=== PATIENT | female | born 1970 | race Caucasian/White ===

== ENCOUNTER 2020-10-15 10:19 | Emergency (ER) | payer BC ==
[2020-10-15] MEDS ORDERED: Sodium Chloride 0.9% 10 ML Syringe FLUSH PRN (11:23)
[2020-10-15] MEDS ORDERED: Sodium Chloride 0.9% 1,000 ML IV ONE (11:24)
[2020-10-15] MEDS ORDERED: Ondansetron 4 MG/2 ML SDV IVPUSH ONE (11:24)
[2020-10-15] MEDS ORDERED: HYDROmorphone 0.5 MG/0.5 ML Syringe IVPUSH ONE (11:24)
--- NOTE | 2020-10-15 11:31 | EDM.PDOC ---
ED HPI GENERAL MEDICAL PROBLEM - General Chief Complaint: RN FIRST ASSIST Problem Stated Complaint: ABDOMINAL PAIN POST SURGERY Time Seen by Provider: 10/15/20 11:03 Source of Information: Reports: Patient History Limitations: Reports: No Limitations, Other (ED vital signs reveal a temp of 98.9, pulse of 69, respiratory rate of 15, blood pressure 109/85, pulse ox 99% on room air) - History of Present Illness INITIAL COMMENTS - FREE TEXT/NARRATIVE: 50-year-old female presents the emergency department today with complaints of generalized abdominal pain. For the patient she states that she had a uterine ablation on September 29, 2020. She states that immediately after the procedure she had issues with nausea and vomiting and abdominal pain and this has since not resolved. She states she has had vaginal bleeding for the past 2 weeks. She states she is going through 1 pad every hour. She denies having any clots. She states that the bleeding is bright red blood. She states she has been nauseated since the procedure as well. She did attempt to take some Zofran yesterday and states this is not helped. She also states she has been fatigued and she does have some dizziness when she is up ambulating. She denies any urinary symptoms. She denies any issues with her bowels. States she has been having 2 bowel movements daily. Denies any recent fever or chills. She states she had the uterine ablation due to heavy vaginal bleeding during her periods. She states she had the procedure done at [facility] in [place] by Dr. Crandall. Lower Abdominal Pain Score (Numeric/FACES): 8 - Related Data Allergies Allergy/AdvReac Type Severity Reaction Status Date / Time No Known Allergies Allergy Verified 10/15/20 11:04 Home Meds: Home Meds . [No Known Home Meds] 10/15/20 [History] Past Medical History RN FIRST ASSIST History: Reports: Endometrial Ablation - Past Surgical History Female Surgical History: Reports: Section, Other (See Below) Other Female Surgeries/Procedures: uterine ablation Social & Family History - Tobacco Use Tobacco Use Status *Q: Never Tobacco User - Recreational Drug Use Recreational Drug Use: No ED ROS GENERAL - Review of Systems Review Of Systems: Comprehensive ROS is negative, except as noted in HPI. ED EXAM, RENAL/ - Physical Exam Exam: See Below Exam Limited By: No Limitations General Appearance: Alert, WD/WN, No Apparent Distress Ears: Normal External Exam, Hearing Grossly Normal Nose: Normal Inspection Throat/Mouth: Normal Inspection, Normal Lips, Normal Voice, No Airway Compromise Head: Atraumatic Neck: Normal Inspection, Supple Respiratory/Chest: No Respiratory Distress, Lungs Clear, Normal Breath Sounds, No Accessory Muscle Use, Chest Non-Tender Cardiovascular: Normal Peripheral Pulses, Regular Rate, Rhythm, No Edema, No Murmur GI/Abdominal: Normal Bowel Sounds, Soft, No Distention, Tender (Suprapubic) (Female) Exam: Normal External Exam, Vaginal Bleeding, Other (Blood noted at cervical os) Rectal (Female) Exam: Deferred Back Exam: Normal Inspection, Full Range of Motion Extremities: Normal Inspection, Normal Range of Motion, Non-Tender, No Pedal Edema, Normal Capillary Refill Neurological: Alert, Oriented, Normal Cognition Psychiatric: Normal Affect, Normal Mood Skin Exam: Warm, Dry, Intact, Normal Color, No Rash Lymphatic: No Adenopathy Course - Vital Signs Text/Narrative:: Patient with complaints of nausea, decreased appetite and generalized abdominal discomfort status post uterine ablation on September 29, 2020. Upon assessment, the patient has suprapubic tenderness with palpation however she does not have any tenderness in the upper abdomen. She states she has not taken any ibuprofen or Tylenol for the discomfort. She states she has had heavy vaginal bleeding since the procedure without clots. She states that the vaginal bleeding is bright red. She was in to see her provider 4 days ago for follow-up for surgery and he did not seem concerned with the vaginal bleeding at that time. Patient states that he prescribed her with Zofran for the nausea. I have ordered labs to include a CBC, CMP, magnesium, C-reactive protein, urine , urinalysis with micro and culture if indicated. I have also ordered a non-OB transvaginal ultrasound. She will receive normal saline 1 L bolus, Dilaudid and Zofran. Last Recorded V/S: Last Vital Signs Temp 98.9 F 10/15/20 10:30 Pulse 69 10/15/20 10:30 Resp 15 10/15/20 10:30 BP 109/85 10/15/20 10:30 Pulse Ox 99 10/15/20 10:30 - Orders/Labs/Meds Orders: Active Orders 24 hr Category Date Time Status CULTURE URINE [MREF] Stat Lab 10/15/20 11:35 Received Sodium Chloride 0.9% [Saline Flush] Med 10/15/20 11:23 Active 10 ml FLUSH ASDIRECTED PRN Saline Lock Insert [OM.PC] Stat Oth 10/15/20 11:23 Ordered Medication Orders Sodium Chloride (Sodium Chloride 0.9% 10 Ml Syringe) 10 ml FLUSH ASDIRECTED PRN PRN Reason: Keep Vein Open Last Admin: 10/15/20 12:12 Dose: 10 ml Documented by: TARA Labs: Laboratory Tests 10/15/20 10/15/20 10/15/20 Range/Units 11:31 11:31 11:35 WBC 8.72 (3.98-10.04) K/mm3 RBC 3.96 L (3.98-5.22) M/mm3 Hgb 11.6 (11.2-15.7) gm/dl Hct 35.4 (34.1-44.9) % MCV 89.4 (79.4-94.8) fl MCH 29.3 (25.6-32.2) pg MCHC 32.8 (32.2-35.5) g/dl RDW Std Deviation 40.8 (36.4-46.3) fL Plt Count 278 (182-369) K/mm3 MPV 9.9 (9.4-12.3) fl Neut % (Auto) 67.0 (34.0-71.1) % Lymph % (Auto) 26.0 (19.3-51.7) % Mchenry % (Auto) 5.3 (4.7-12.5) % Eos % (Auto) 1.3 (0.7-5.8) Baso % (Auto) 0.2 (0.1-1.2) % Neut # (Auto) 5.84 (1.56-6.13) K/mm3 Lymph # (Auto) 2.27 (1.18-3.74) K/mm3 Mchenry # (Auto) 0.46 H (0.24-0.36) K/mm3 Eos # (Auto) 0.11 (0.04-0.36) K/mm3 Baso # (Auto) 0.02 (0.01-0.08) K/mm3 Sodium 140 (136-145) mEq/L Potassium 3.9 (3.5-5.1) mEq/L Chloride 106 (98-107) mEq/L Carbon Dioxide 25 (21-32) mEq/L Anion Gap 12.9 (5-15) BUN 21 H (7-18) mg/dL Creatinine 0.7 (0.55-1.02) mg/dL Est Cr Clr Drug Dosing TNP Estimated GFR (MDRD) > 60 (>60) mL/min BUN/Creatinine Ratio 30.0 H (14-18) Glucose 91 (70-99) mg/dL Calcium 8.1 L (8.5-10.1) mg/dL Magnesium 2.0 (1.8-2.4) mg/dL Total Bilirubin 0.4 (0.2-1.0) mg/dL AST 22 (15-37) U/L ALT 31 (14-59) U/L Alkaline Phosphatase 73 (46-116) U/L C-Reactive Protein <0.2 (<1.0) mg/dL Total Protein 6.6 (6.4-8.2) g/dl Albumin 3.4 (3.4-5.0) g/dl Globulin 3.2 gm/dL Albumin/Globulin Ratio 1.1 (1-2) Urine Color Yellow (Yellow) Urine Appearance Clear (Clear) Urine pH 6.0 (5.0-8.0) Ur Specific Coyote 1.020 (1.005-1.030) Urine Protein Negative (Negative) Urine Glucose (UA) Negative (Negative) Urine Ketones Negative (Negative) Urine Occult Blood 2+ H (Negative) Urine Nitrite Negative (Negative) Urine Bilirubin Negative (Negative) Urine Urobilinogen 0.2 (0.2-1.0) Ur Leukocyte Esterase Trace H (Negative) Urine RBC 10-20 H (0-5) /hpf Urine WBC 0-5 (0-5) /hpf Ur Squamous Epith Cells 0-5 (0-5) /hpf Urine Bacteria Few (FEW) /hpf Urine Mucus Not seen (FEW) /hpf Urine HCG, Qual (NEGATIVE) 10/15/20 Range/Units 11:35 WBC (3.98-10.04) K/mm3 RBC (3.98-5.22) M/mm3 Hgb (11.2-15.7) gm/dl Hct (34.1-44.9) % MCV (79.4-94.8) fl MCH (25.6-32.2) pg MCHC (32.2-35.5) g/dl RDW Std Deviation (36.4-46.3) fL Plt Count (182-369) K/mm3 MPV (9.4-12.3) fl Neut % (Auto) (34.0-71.1) % Lymph % (Auto) (19.3-51.7) % Mchenry % (Auto) (4.7-12.5) % Eos % (Auto) (0.7-5.8) Baso % (Auto) (0.1-1.2) % Neut # (Auto) (1.56-6.13) K/mm3 Lymph # (Auto) (1.18-3.74) K/mm3 Mchenry # (Auto) (0.24-0.36) K/mm3 Eos # (Auto) (0.04-0.36) K/mm3 Baso # (Auto) (0.01-0.08) K/mm3 Sodium (136-145) mEq/L Potassium (3.5-5.1) mEq/L Chloride (98-107) mEq/L Carbon Dioxide (21-32) mEq/L Anion Gap (5-15) BUN (7-18) mg/dL Creatinine (0.55-1.02) mg/dL Est Cr Clr Drug Dosing Estimated GFR (MDRD) (>60) mL/min BUN/Creatinine Ratio (14-18) Glucose (70-99) mg/dL Calcium (8.5-10.1) mg/dL Magnesium (1.8-2.4) mg/dL Total Bilirubin (0.2-1.0) mg/dL AST (15-37) U/L ALT (14-59) U/L Alkaline Phosphatase (46-116) U/L C-Reactive Protein (<1.0) mg/dL Total Protein (6.4-8.2) g/dl Albumin (3.4-5.0) g/dl Globulin gm/dL Albumin/Globulin Ratio (1-2) Urine Color (Yellow) Urine Appearance (Clear) Urine pH (5.0-8.0) Ur Specific Coyote (1.005-1.030) Urine Protein (Negative) Urine Glucose (UA) (Negative) Urine Ketones (Negative) Urine Occult Blood (Negative) Urine Nitrite (Negative) Urine Bilirubin (Negative) Urine Urobilinogen (0.2-1.0) Ur Leukocyte Esterase (Negative) Urine RBC (0-5) /hpf Urine WBC (0-5) /hpf Ur Squamous Epith Cells (0-5) /hpf Urine Bacteria (FEW) /hpf Urine Mucus (FEW) /hpf Urine HCG, Qual Negative (NEGATIVE) Meds: Medications Generic Name Dose Route Start Last Admin Trade Name Freq PRN Reason Stop Dose Admin Sodium Chloride 10 ml 10/15/20 11:23 10/15/20 12:12 Sodium Chloride 0.9% 10 Ml Syringe FLUSH 10 ml ASDIRECTED PRN Administration Keep Vein Open Discontinued Medications Generic Name Dose Route Start Last Admin Trade Name Freq PRN Reason Stop Dose Admin Hydromorphone HCl 0.5 mg 10/15/20 11:24 10/15/20 12:13 Hydromorphone 0.5 Mg/0.5 Ml Syringe IVPUSH 10/15/20 11:25 0.5 mg ONETIME ONE Administration Sodium Chloride 1,000 mls @ 999 mls/hr 10/15/20 11:24 10/15/20 12:13 Normal Saline IV 10/15/20 12:24 999 mls/hr ONETIME ONE Administration Ondansetron HCl 4 mg 10/15/20 11:24 10/15/20 12:13 Ondansetron 4 Mg/2 Ml Sdv IVPUSH 10/15/20 11:25 4 mg ONETIME ONE Administration - Re-Assessments/Exams Free Text/Narrative Re-Assessment/Exam: 10/15/20 12:54 Radiologist impression pelvic ultrasound transvaginal and transabdominal: 1. Uterus shows air within the endometrial cavity. 2. Nabothian cyst. 3. Nonvisualized ovaries. 4. Endometrial thickness is difficult to accurately measure. 10/15/20 13:40 Hematology reveals a WBC of 8.72, hemoglobin 11.6, hematocrit 35.4, platelet count 278 Chemistry reveals a sodium of 140, potassium 3.9, carbon dioxide 25, anion gap 12.9, BUN 21, creatinine 0.7, glucose 91, calcium 8.1, magnesium 2.0, C-reactive protein less than 0.2 Urinalysis shows 2+ occult blood, trace leukocyte Estrace, urine RBC 10-20, urine WBC 0-5, urine squamous epithelial cells 0-5, urine bacteria few, urine mucus not seen, urine hCG negative I have placed a call to the patient's RN FIRST ASSIST, Dr. Crandall, and he is not available at this time. They are going to return my phone call. 10/15/20 13:58 Dr. Crandall's nurse returned my phone call. She states that at times they use a tenaculum when doing the uterine ablation and this could likely be the source of bleeding. She states that if that is the source a lot of times the recommended treatment is using silver nitrate to cauterize the cervix. I will do pelvic exam on the patient to find the source of bleeding. She states that if the bleeding is coming from the cervix that the patient will need to schedule appointment to be seen by one of the providers first thing next week. I discu ssed this with the patient and she does agree to this plan. 10/15/20 14:16 Pelvic exam reveals blood noted at the cervical os. No external bleeding noted on the cervix. Patient will need to follow-up at [facility] first thing next week. She is aware of this plan and states she will call and schedule appointment. I have also given her strict return precautions and she verbalizes understanding. Departure - Departure Time of Disposition: 14:17 Disposition: Home, Self-Care 01 Condition: Good Clinical Impression: Vaginal bleeding - Discharge Information Instructions: Pain Medicine Instructions, [id number], Abnormal Uterine Bleeding, [id number] Referrals: PCP,None [Primary Care Provider] - Forms: ED Department Discharge Additional Instructions: You were seen in the emergency department today with complaints of vaginal bleeding status post uterine ablation. You were given IV fluids, pain medication and nausea medication. Labs were completed which were essentially unremarkable. Your hemoglobin level is stable. Cervical exam revealed blood noted at the cervical os. There is no external bleeding noted on your cervix. I did call the RN FIRST ASSIST clinic at [facility] and spoke with 's nurse. You will need to call and schedule appointment to be evaluated by one of the providers first thing next week. Recommend that you go home and rest and drink plenty of fluids. Should your vaginal bleeding become more heavy such as using 3 pads or more in an hour or passing large clots, it is strongly recommended that you return to the emergency department for reevaluation. You may take either ibuprofen 600 mg every 6-8 hours for abdominal discomfort or Tylenol 650 mg every 4 hours. Also recommend that you use the Zofran that was prescribed for nausea. Should your condition worsen or change, do not hesitate returning to the emergency department. Sepsis Event Note (ED) - Evaluation Sepsis Screening Result: No Definite Risk - Focused Exam Vital Signs: Vital Signs Temp Pulse Resp BP Pulse Ox 10/15/20 10:30 98.9 F 69 15 109/85 99 - My Orders Last 24 Hours: My Active Orders 10/15/20 11:23 Sodium Chloride 0.9% [Saline Flush] 10 ml FLUSH ASDIRECTED PRN Saline Lock Insert [OM.PC] Stat 10/15/20 11:35 CULTURE URINE [MREF] Stat - Assessment/Plan Last 24 Hours: My Active Orders 10/15/20 11:23 Sodium Chloride 0.9% [Saline Flush] 10 ml FLUSH ASDIRECTED PRN Saline Lock Insert [OM.PC] Stat 10/15/20 11:35 CULTURE URINE [MREF] Stat
--- NOTE | 2020-10-15 12:38 | US ---
Pelvic ultrasound: Multiple real-time images of the pelvis were obtained transvaginally and transabdominally. Uterus is anteverted. Echogenic air is seen within the endometrial cavity presumably due to air. Endometrial thickness is difficult to accurately measure. No myometrial abnormality is appreciated. Nabothian cysts are seen within the cervix. Ovaries are not visualized either transabdominally or transvaginally. Measurements: Uterus: Length 9.5 cm, AP height 5.3 cm, transverse width 6.2 cm Impression: 1. Uterus shows air within the endometrial cavity. 2. Nabothian cyst. 3. Nonvisualized ovaries. Diagnostic code #2
== END 2020-10-15 14:29 | disposition home or self-care (01) ==
LOC: JD.ED 10:19
DX: N93.9 Abnormal uterine and vaginal bleeding, unspecified (principal)
CPT/HCPCS: 36415; 76830; 80053; 81001; 81025; 83735; 85025; 86140; 87086; 96374; 96375; 99284; J1170; J2405; J7030

== ENCOUNTER 2021-03-24 22:25 | Emergency (ER) | payer BC, OTHER ==
--- NOTE | 2021-03-25 00:08 | EDM.PDOC ---
ED HPI GENERAL MEDICAL PROBLEM - General Chief Complaint: Upper Extremity Injury/Pain Stated Complaint: WORK INJURY Time Seen by Provider: 03/24/21 23:58 - History of Present Illness INITIAL COMMENTS - FREE TEXT/NARRATIVE: 50-year-old female brought in after Workmen's Comp. injury. Patient works in [employer] and by mechanism I do not fully understand got caught up in a robotic fixture with injuries to both shoulders. On the right shoulder she has an abrasion she otherwise has no significant discomfort. On her left shoulder she has significant discomfort and does not want to use this shoulder. She has no prior history of shoulder problems. Left Shoulder Pain Score (Numeric/FACES): 7 - Related Data Allergies Allergy/AdvReac Type Severity Reaction Status Date / Time morphine Allergy Itching Verified 03/24/21 22:56 Home Meds: Home Meds . [No Known Home Meds] 10/15/20 [History] Past Medical History [employer] History: Reports: Endometrial Ablation - Past Surgical History Female Surgical History: Reports: Section, Other (See Below) Other Female Surgeries/Procedures: uterine ablation Social & Family History - Tobacco Use Tobacco Use Status *Q: Never Tobacco User Second Hand Smoke Exposure: No - Recreational Drug Use Recreational Drug Use: No Review of Systems - Review of Systems Review Of Systems: See Below Constitutional: Reports: No Symptoms Respiratory: Reports: No Symptoms Cardiovascular: Reports: No Symptoms GI/Abdominal: Reports: No Symptoms ED EXAM, GENERAL - Physical Exam Exam: See Below Exam Limited By: No Limitations General Appearance: Alert, No Apparent Distress Head: Atraumatic, Normocephalic Neck: Normal Inspection Respiratory/Chest: No Respiratory Distress, Lungs Clear, Normal Breath Sounds Cardiovascular: Regular Rate, Rhythm, No Edema, No Murmur Extremities: Other (Lamination the right shoulder shows an abrasion over the l ateral proximal humerus. Left shoulder does not feel dislocated however she does not want to move it at all supination pronation of the forearm intact. Neurovascular status of the hand normal) Neurological: Alert, Oriented, Normal Cognition Course - Vital Signs Last Recorded V/S: Last Vital Signs Temp 36.1 C 03/24/21 22:54 Pulse 82 03/24/21 22:54 Resp 16 03/24/21 22:54 BP 117/59 L 03/24/21 22:54 Pulse Ox 98 03/24/21 22:54 - Orders/Labs/Meds Orders: Active Orders 24 hr Category Date Time Status Shoulder Comp Lt [CR] Stat Exams 03/24/21 23:07 Taken - Re-Assessments/Exams Free Text/Narrative Re-Assessment/Exam: 03/25/21 00:21 X-ray examination of the left shoulder shows no acute fracture dislocation she is got some degenerative changes at the AC joint. At this point put her in a sling. She should follow-up with her L&I doctor on Sunday or Sunday for recheck and reassess her ability to use this arm. The sling will help limit further injury and facilitate healing Departure - Departure Time of Disposition: 00:24 Disposition: Home, Self-Care Clinical Impression: Abrasion of right upper arm, Injury of left shoulder - Discharge Information Forms: ED Department Discharge, ED Return to Work/School Form Additional Instructions: Return to the emergency room with any questions problems or worsening symptoms. Wear the sling at all times until your shoulder is reevaluated. Follow-up early next week with your L&I physician for recheck and reevaluation. Tylenol and/or Motrin as needed for discomfort Sepsis Event Note (ED) - Evaluation Sepsis Screening Result: No Definite Risk - Focused Exam Vital Signs: Vital Signs Temp Pulse Resp BP Pulse Ox 03/24/21 22:54 36.1 C 82 16 117/59 L 98 - My Orders Last 24 Hours: My Active Orders 03/24/21 23:07 Shoulder Comp Lt [CR] Stat - Assessment/Plan Last 24 Hours: My Active Orders 03/24/21 23:07 Shoulder Comp Lt [CR] Stat
[2021-03-25] MEDS ORDERED: Ibuprofen 600 MG Tab PO ONE (00:27)
--- NOTE | 2021-03-25 09:48 | CR ---
EXAM: XRAY SHOULDER,2+VWS LEFT LOCATION: [facility] DATE/TIME: 03/24/2021 11:07 PM INDICATION: Left shoulder pain with injury and decreased range of motion. COMPARISON: None. IMPRESSION: No fracture or dislocation. 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 Minimal degenerative changes left glenohumeral joint. Visualized ribs unremarkable. Normal heart size. Aortic calcification. SIGNED BY: Anuj Li MD 03/25/2021 12:32 AM [facility]
== END 2021-03-25 00:34 | disposition home or self-care (01) ==
LOC: JD.ED 22:25
DX: S40.211A Abrasion of right shoulder, initial encounter (principal); Z88.5 Allergy status to narcotic agent; W23.0XXA Caught, crushed, jammed, or pinched between moving objects, initial encounter
CPT/HCPCS: 73030; 99283; A9270

== ENCOUNTER 2021-07-11 14:52 | Emergency (ER) | payer BC, OTHER ==
[2021-07-11] MEDS ORDERED: Ondansetron 4 MG/2 ML SDV IVPUSH ONE (15:17)
[2021-07-11] MEDS ORDERED: Sodium Chloride 0.9% 10 ML Syringe FLUSH PRN (15:17)
[2021-07-11] MEDS ORDERED: Sodium Chloride 0.9% 1,000 ML IV SCH (15:30)
[2021-07-11 16:26] LABS: CORONAVIRUS COVID-19 NAA NEGATIVE (NEGATIVE)
== END 2021-07-11 18:15 | disposition home or self-care (01) ==
LOC: JD.ED 14:52
DX: A08.4 Viral intestinal infection, unspecified (principal); Z20.822 Contact with and (suspected) exposure to COVID-19; Z88.6 Allergy status to analgesic agent
CPT/HCPCS: 0241U; 36415; 71045; 80053; 81001; 84484; 85025; 86308; 93005; 96374; 99284; J2405; J3490; J7030; 93010